=== PATIENT | male | born 1970 | race Two or more races ===

== ENCOUNTER 2022-01-12 09:14 | Emergency (ER) | payer SELFPAY ==
[~2022-01-12] VITALS: Ht 167.6 cm; Wt 79.4 kg
--- NOTE | 2022-01-12 09:25 | NUR ---
BIBS W/ C/O RECTAL AREA PAIN AND SWELLING X 3 DAYS. TO ER BED 9.
[2022-01-12] MEDS ORDERED: LIDOCAINE 1% INJ 50 ML MDV IJ ONE ×2 (10:52→11:00)
--- NOTE | 2022-01-12 11:49 | NUR ---
I&D done by at bedside. Wound packed with iodoform. Dry dressing applied.
[2022-01-12] MEDS ORDERED: IBUP-1955 PO (12:01)
[2022-01-12] MEDS ORDERED: SULF1TAB48 PO (12:01)
[2022-01-12] MEDS ORDERED: CEPH500C2 PO (12:01)
[2022-01-12 12:16] VITALS: BP 140/98
--- NOTE | 2022-01-12 12:17 | NUR ---
Patient discharged to home in stable condition. Written and verbal after care instructions given. Patient verbalizes understanding of instruction.
== END 2022-01-12 12:17 | disposition home or self-care (01) ==
LOC: ER 09:21
DX: K61.0 Anal abscess (principal)
CPT/HCPCS: 46050; 99284; 76882; J3490; A6403 ×2

== ENCOUNTER 2022-01-15 18:42 | Emergency (ER) | payer SELFPAY ==
[~2022-01-15] VITALS: Ht 170.2 cm; Wt 79.4 kg
[~2022-01-15 18:42] MED LIST: CEPH500C2 PO; IBUP-1955 PO; SULF1TAB48 PO
[2022-01-15 19:15] VITALS: BP 153/83
--- NOTE | 2022-01-15 19:15 | NUR ---
LYDIA FROM HOME FOR WOUND CHECK, WAS HERE 3DAYS AGO FOR PERIANAL ABCESS
--- NOTE | 2022-01-15 19:42 | NUR ---
DR. OLIVE LEVINE AT PT'S BEDSIDE
--- NOTE | 2022-01-15 20:03 | NUR ---
Patient discharged to home in stable condition. Written and verbal after care instructions given. Patient verbalizes understanding of instruction. pt ambulatory with a steady gait
== END 2022-01-15 20:19 | disposition home or self-care (01) ==
LOC: ER 18:43
DX: Z48.01 Encounter for change or removal of surgical wound dressing (principal); K61.0 Anal abscess